=== PATIENT | male | born 2005 | race Caucasian/White ===

== ENCOUNTER 2025-02-15 19:52 | Emergency (ER) | payer MEDICAID, SELFPAY ==
[2025-02-15 20:18] VITALS: BP 123/79; PULSE 94; RESP 16; TEMP 36.7; O2SAT 97; BMI 25.0
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
--- NOTE | 2025-02-15 20:22 | XR_ITS ---
PROCEDURE INFORMATION: Exam: XR Right Hand Exam date and time: 02/15/2025 9:11 PM Age: 19 years old Clinical indication: Other: Pain, right 3rd metatarsal area TECHNIQUE: Imaging protocol: Radiologic exam of the right hand. Views: 1 or 2 views. COMPARISON: No relevant prior studies available. FINDINGS: Bones/joints: Normal. Soft tissues: Normal. IMPRESSION: No acute findings.
[2025-02-15] MEDS: ACETAMINOPHEN 500MG TAB 1000 MG PO (20:31)
[2025-02-15] MEDS: IBUPROFEN 600 MG TABLET PO (20:31)
--- OUTSIDE RECORDS SUMMARY | 2025-02-15 20:50 | XMS_ITS | Clinical Summary ---
Author Organization [facility] Address [address] [place] [address] Care Team Providers Care Office Machine Inspector Name Role Phone Provider, No Known Primary Care Provider Unavail able Social History Tobacco Use Types Packs/Day Years Used Date Smoking Tobacco: Never Assessed Abuse Screen Answer Date Recorded Unsafe at Home or Work/School Not on file Feels Threatened by Someone? Not on file Does Anyone Keep You from Co ntacting Others or Doint Things Outside the Home? Not on file 04/11/2023 Physical Sign of Abuse Present Not on file 1 06/11/2022 Housing Stability Answer Date Recorded Current Living Arrangements Not on file 03/17 Potentially Unsafe Housing Conditions Not on fahad e 04/11/2023 Family and Community Support Answer Chandler e Recorded Help with Day-to-Day Activities Not on file 04/11/2023 Lonely or Isolated Not on file 04/11/2023 Employment Answer Date Recorded Do you want help finding or keeping work or a marciano b? Not on file 04/11/2023 Disabilities Answer Date Recorded Concentrating, Remembering, or Making Decisions Difficulty Not on file 04/11/2023 Doing Errands Independently Difficulty Not on fi le 04/11/2023 Education Answer Date Recorded Help with school or training? Not on file Preferred Language Not on file 04/11/2023 Sex and Gender Information Value Date Recorded Sex Assigned at Not on file Legal Sex Male 9:47 AM EST Gender Identity Not on file Sexual Orientation Not on file Plan of Treatment Health Maintenance Due Date Last Done Comments HPV VACCINES (1 - Male 3-dose series) 2020 MENINGOCOCCAL B VACCINE (2 of 2 - Trumenba SCDM 2-dose series) 07/10/2022 01/07/2022 ANNUAL PHYSICAL 04/11/2023 HEPATITIS C SCREENING 04/11/2023 TDAP/TD VACCINES (1 - Tdap) 2024 INFLUENZA VACCINE 12/14/2024 03/08/2013, 03/29/2007 Pneumococcal Vaccine 0-49 Aged Out 2006, 2005, 2005, Additional history exists No longer eligible based on patient's age to complete this topic MENINGOCOCCAL VACCINE Completed 01/07/2022 Insurance [employer] BY [employer] Care Teams Office Machine Inspector Relationship Specialty Start Date End Date Provider, [place] [address] PCP - General 06/14/23
--- OUTSIDE RECORDS SUMMARY | 2025-02-15 20:50 | XMS_ITS | Clinical Summary ---
Author Organization Healthcare Address [address] [place] [address] Care Team Providers Care Fish Bait Processing Supervisor Name Role Phone Woody Bryant APRN Primary Care Provider + Allergies No known active allergies Medications albuterol 108 (90 Base) MCG/ACT inhalerIndicati ons:Asthma Inhale 2 puffs every 6 (six) hours if needed for wheezing. Active cetirizine (ZyrTEC) 10 MG tabletIndicatio ns:Seasonal Allergic Rhinitis Take 10 mg by mouth 1 (one) time each day. Active cloNIDine (Catapres) 0.2 MG tabletIndicatio ns:impulsivity Take 1 tablet (0.2 mg total) by mouth every night. 30 tablet 04/12/2022 Active FLUoxetine (PROzac) 10 MG capsuleIndicati ons:Major Depressive Disorder Take 3 capsules (30 mg total) by mouth 1 (one) time each day. 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 04/09/2022 Adjustment disorder with mix ed disturbance of emotions and conduct 04/08/2022 ADHD 09/05/2020 Social History Tobacco Use Types Packs/Day Years Used Date Smoking Tobacco: Some Days Cigarettes Smokeless Tobacco: Current Tobacco Cessation:Ready to Q uit: Not Asked; Counseling Given: Not Answered Sex and Gender Information Value Date Recorded Sex Assigned at Male 04/08/2022 11:30 PM EST Legal Sex Male 8:56 PM EDT Gender Identity Male 04/08/2022 11:30 PM EST Sexual Orientation Straight 04/08/2022 11 :30 PM EST Last Filed Vital Signs Vital Sign Reading Time Taken Comments Blood Pressure 142/79 09/01/2024 11:00 PM EDT Pulse 100 09/01/2024 11:00 PM EDT Temperature 36.8 C (98.3 F) 09/01/2024 10:32 PM EDT Respiratory Rate 15 09/01/2024 11:0 0 PM EDT Oxygen Saturation 98% 09/01/2024 11: 00 PM EDT Inhaled Oxygen Concentration - - Weight 88.3 kg (194 lb 10.7 oz) 025 10:32 PM EDT Height 182.9 cm (6') 09/01/2024 10:32 PM EDT Body Mass Index 26.4 09/01/2024 10:32 PM EDT Plan of Treatment Health Maintenance Due Date Last Done Comments [facility]-Depression Screening 2005 [facility]-HIV Screening 2005 [facility]-Hepatitis C Screening 2005 [facility]-Infant/Child/Adol SDOH Screenings 2005 Fluoride Varnish 2005 [facility]-Obesity Intervention 2011 [facility]-Pneumococcal Vaccine: Pediatrics (0 to 5 Years) and At-Risk Patients (6 to 49 Years) (1 of 1 - PPSV23, PCV20, or PCV21) 2011 08/25/2006, 08/25/2006, 2005, Additional history exists [facility]- SDOH Screenings 2023 [facility]-Adult SDOH Screenings 2023 FJD-SPDPU-58 Vaccine (1 - season) 2025 [facility]-Influenza Vaccine (#1) 01/14/202502/16, 03/08/2013, 03/29/2007 [facility]-DTaP,Tdap,and Td Vaccines (7 - Td or Tdap) 05/25/2026 05/25/2016, 06/11/2009, 06/11/2009, Additional history exists [facility]-Zoster Vaccines (1 of 2) 2055 06/11/2009, 08/25/2006, 08/25/2006 [facility]-HIB Vaccines Completed 06/08/2006, , 2005 [facility]-Hepatitis B Vaccines Completed 007, 2005, 2005, Additional history exists [facility]-IPV Vaccines Completed 06/11/2009, , 06/08/2006, Additional history exists [facility]-Varicella Vaccines Completed 0, 08/25/2006, 08/25/2006 HPV Vaccines Completed 02/16/2017, 05/25/2016 [facility]-Hepatitis A Vaccines Completed 017, 08/16/2016, 2005, Additional history exists [facility]-Rotavirus Vaccines Aged Out No lo nger eligible based on patient's age to complete this topic Insurance [employer] MED[employer]ID [place] [employer] Care Teams Fish Bait Processing Supervisor Relationship Specialty Start Date End Date Woody Bryant APRN [address] [place] [address] [address] [place] [address] [facility] - General 09/26/20
--- OUTSIDE RECORDS SUMMARY | 2025-02-15 20:50 | XMS_ITS | Encounter Summary ---
Author Organization [facility] Address [address] [id number] Care Team Providers Care Ball Winder Name Role Phone Woody Bryant APRN Primary Care Provider + Encounter Details Date Type Department Care Team (Late st Contact Info) Description 10/07/2022 Lab Requisition [facility] [address] [place] [address] Daren Henriquez MD [address] [place] [address] Osteochondropathy, unspecified, unspecified lower leg Social History Tobacco Use Types Packs/Day Years Used Date Smoking Tobacco: Some Days Cigarettes Smokeless Tobacco: Current Sex and Gender Information Value Date Recorded Sex Assigned at Male 04/08/2022 11:30 PM EST Legal Sex Male 8:56 PM EDT Gender Identity Male 04/08/2022 11:30 PM EST Sexual Orientation Straight 04/08/2022 11 :30 PM EST documented as of this encounter Plan of Treatment Not on file documented as of this encounter Procedures Procedure Name Priority Date/Time Associated Diagnosis Comments SURGICAL PATHOLOGY EXAM Routine 10/07/2022 Osteochondropathy, unspecified, unspecified lower leg documented in this encounter Results * Surgical Pathology Exam (10/07/2022) Case Report Surgical Pathology Case: [id number] Authorizing Provider: Daren Henriquez MD Collected: 10/07/2022 Ordering Location: [facility] Received: 10/07/2022 9636 Pathologist: Nathaly Haskins MD Specimen: Femur, Left distal femur mass 10/14/2022 11:34 AM EDT [facility] Final Diagnosis A. BONE, LEFT DISTAL FEMUR; EXCISION OF MASS: - OSTEOCHONDROMA. 10/14/2022 11:34 AM EDT [facility] at 1134 EDT Clinical Information Osteochondropathy , unspecified, unspecified lower leg Left femur osteochondroma 10/14/2022 11:34 AM EDT [facility] Gross Description A. LEFT DISTAL FEMUR MASS Received in formalin labeled left distal femur mass , and consists of a barrios/white fragment of bone measures 4.2 x 1.6 x 1.0 cm. The distal resection margin is inked blue. The capsule measures 1.2 x 0.4 cm in greatest dimension. Instrument Assembler sections are submitted in cassette A1 for decalcification. Nicky Maya 10/14/2022 11:34 AM EDT [facility] Note: A resident was involved in the service. I attest I examined the relevant preparations for the specimens and confirmed the diagnosis or interpretation. 10/14/2022 11:34 AM EDT [facility] Tissue Bone structure of femur / Unknown 10/07/2022 10/07/2022 1:08 PM EDT us Daren Henriquez MD LAB PATHOLOGY ORDERABLES Fi nal Result Performing Organization Address City/State/[facility] Co de Phone Number [facility] [address] [place] [address] documented in this encounter Visit Diagnoses Diagnosis Osteochondropathy, unspecified, unspecified lower leg documented in this encounter Care Teams Ball Winder Relationship Specialty Start Date End Date Woody Bryant APRN [address] [place] [address] [address] [place], [place] [id number] PCP - General 09/26/20 documented as of this encounter
--- OUTSIDE RECORDS SUMMARY | 2025-02-15 20:50 | XMS_ITS | Encounter Summary ---
Author Organization Healthcare Address [address] [place] [address] Care Team Providers Care Electronic Parts Salesperson Name Role Phone Woody Bryant APRN Primary Care Provider + Reason for Visit * Reason Comments Med Refill Encounter Details Date Type Department Care Team (Late st Contact Info) Description 05/30/2021 Refill [facility] [address] [place] [address] Helen Parks MD [address] [place] [address] Social History Tobacco Use Types Packs/Day Years Used Date Smoking Tobacco: Never Assessed Sex and Gender Information Value Date Recorded Sex Assigned at Male 04/08/2022 11:30 PM EST Legal Sex Male 8:56 PM EDT Gender Identity Male 04/08/2022 11:30 PM EST Sexual Orientation Straight 04/08/2022 11 :30 PM EST documented as of this encounter Plan of Treatment Not on file documented as of this encounter Visit Diagnoses Not on filedocumented in this encounter Care Teams Electronic Parts Salesperson Relationship Specialty Start Date End Date Woody Bryant APRN [address] [place] [address] [address] [place] [address] PCP - General 09/26/20 documented as of this encounter
[2025-02-15 22:14] VITALS: BP 128/87; PULSE 74; RESP 20; TEMP 36.7; O2SAT 98
== END 2025-02-15 22:19 | disposition home or self-care (01) ==
PROVIDERS: Emergency Provider Student in an Organized Health Care Education/Training Program
DX: S69.91XA Unspecified injury of right wrist, hand and finger(s), initial encounter (principal); M79.641 Pain in right hand; W22.8XXA Striking against or struck by other objects, initial encounter
CPT/HCPCS: 73120; 99283